=== PATIENT | male | born 1965 | race Caucasian/White ===

== ENCOUNTER 2022-05-07 06:13 | Day surgery (SDC) | payer OTHER ==
[~2022-05-07] VITALS: Ht 177.8 cm; Wt 84.5 kg
[2022-05-07] MEDS ORDERED: BENZOCAINE 20% 50 MCG/SPRAY 57 GM TP ONE (06:14)
[2022-05-07] MEDS ORDERED: LIDOCAINE 4% 50 ML SOLUTION TP ONE (06:14)
[2022-05-07] MEDS ORDERED: ALBUTEROL SULFATE 2.5 MG/0.5 ML NEB SOLUTION NEB ONE (06:14)
[2022-05-07] MEDS ORDERED: LIDOCAINE 2% 11 ML JELLY TP ONE (06:14)
[2022-05-07] MEDS ORDERED: SODIUM CHLORIDE 0.9% 1,000 ML IV ONE (06:30)
[2022-05-07 06:54] LABS: COVID AG,FIA SOURCE NASOPHARYNGEAL
[2022-05-07] MEDS ORDERED: SODIUM CHLORIDE 0.9% 1,000 ML ONE (07:06)
[2022-05-07] MEDS ORDERED: FentaNYL CITRATE PF 100 MCG/2 ML VIAL ONE (07:57)
[2022-05-07] MEDS ORDERED: MIDAZOLAM HCL 5 MG/ML VIAL ONE (07:58)
[2022-05-07] MEDS ORDERED: MethylPREDNISolone SOD SUCC 125 MG/2 ML VIAL IVP ONE (09:15)
[2022-05-07] MEDS ORDERED: AZEL23SP2 NASAL (10:03)
[2022-05-07] MEDS ORDERED: LOSA-382 PO (10:03)
[2022-05-07] MEDS ORDERED: MONT-35 PO (10:03)
[2022-05-07] MEDS ORDERED: UMEC1DIS (10:03)
[2022-05-07] MEDS ORDERED: MethylPREDNISolone SOD SUCC 125 MG/2 ML VIAL ONE (10:15)
[2022-05-07] MEDS ORDERED: OXYGEN THERAPY IH SCH (20:00)
== END 2022-05-07 11:30 | disposition home or self-care (01) ==
LOC: SURGERY 06:13
PROVIDERS: ATTEND Internal Medicine Critical Care Medicine
DX: J38.4 Edema of larynx (principal); B37.0 Candidal stomatitis; I10 Essential (primary) hypertension; Z79.899 Other long term (current) drug therapy; Z98.890 Other specified postprocedural states
CPT/HCPCS: 31623; 87206; 87101; 87220; 87070; 31624; 71045; 87015; 87426; J3010; J2930; J2250; Q9967; J7030; C9803; J7613; Z7610